=== PATIENT | female | born 1930 | race American Indian/Alaskan Native ===

== ENCOUNTER → 2016-10-05 | Day surgery (SDC) | payer MEDICARE, BC ==
[~2016-10-05] VITALS: Ht 167.6 cm; Wt 75.3 kg
[~2016-10-05] MED LIST: ACETAMINOPHEN 325 MG TAB PO PRN; ADV100INH INH; ALBU83IN INH; AMLO25TA PO; AcetaZOLAMIDE 500 MG ER CAP PO ONE; BETAMETHASONE SOLUSPAN 6MG/ML INJ 5ML (J0702) As Ordered ONE; BRIM1OPD OU; BSS with VANC/TOB/EPI for EYE CASES IR ONE; D5W/0.2% SODIUM CHLORIDE 250 ML IV ONE; FURO40TA2 PO; HEALON DUET (HEALON 10MG/ML 0.55ML & HEALON ENDOCOAT 30MG/ML 0.85ML) As Ordered ONE; KETOROLAC 0.5% OPHTH SOLN OS ONE; LEVO25TA5 PO; LIDOCAINE 2% W/EPIN INJ 20ML **PRES FREE As Ordered ONE; LIDOCAINE 4% INJ 5 ML AMP OU ONE; LR 1,000 ML IV SCH; MIDAZOLAM INJ 2 MG/2 ML VIAL (J2250) As Ordered ONE; MOXIFLOXACIN IN BSS 0.25MG/0.25ML INTRACAMERAL INJ (OR EYE ONLY)(J2280) As Ordered ONE; OFLOXACIN 0.3 % (OCUFLOX) OPTH SOL 5ML OS ONE; ONDANSETRON 4MG/2ML VIAL (J2405) IV PRN; POVIDONE-IODINE 5% OPHTH PREP SOL 30ML As Ordered ONE; PRED10PA PO; PREDOPD OU; PROPARACAINE 0.5% OPHTH SOL 15ML OS PRN; PROT20TA11 PO; SYST1SOL OU; TOBRADEX OPHTH OINT 3.5 GM As Ordered ONE; TOBRAMYCIN INJ 80 MG/2 ML VIAL (J3260) As Ordered ONE; TRIMETHOBENZAMIDE 300 MG CAP PO PRN; XALA0.002 OU; fentaNYL 100 MCG/2 ML INJECTION (J3010) As Ordered ONE; mitoMYcin (FOR OPHTHALMIC USE) 0.3MG/1ML SYRINGE IN NaCl (J7999) As Ordered ONE
[2016-10-05 10:50] VITALS: BP 178/87
--- NOTE | 2016-10-05 16:47 | RO ---
DATE OF PROCEDURE: 10/05/2016 PREOPERATIVE DIAGNOSIS: Glaucoma left eye. POSTOPERATIVE DIAGNOSIS: Glaucoma left eye. PROCEDURE: Placement of the Ex-PRESS shunt, version P-50, serial number [id number] and endocyclophotocoagulation left eye. SURGEON: Dr. Jenn Mares WARE SERVER: None. ANESTHESIA: COMPLICATIONS: None. DESCRIPTION OF PROCEDURE: The patient was brought to the operating room, laid in supine position. The left eye was prepped and draped in a sterile fashion for ophthalmic surgery following which a lid speculum was placed. A 7-0 Vicryl suture was then placed superiorly along the limbus, and the eye was rotated inferiorly. A fornix-based conjunctival flap was then created, which was dissected all the way up to the blue line. Hemostasis was obtained as necessary. Mitomycin C 0.3 mg per mL was then placed on the scleral bed followed by copious irrigation after 2-1/2 minutes with balanced salt solution. Limbal-based scleral flap was then created with the help of the straight and curved blade, and the anterior chamber was entered underneath the flap at the blue line with a 27-gauge needle, which was drawn in through the same tract the Ex-PRESS shunt was placed. The shunt was then draped over the scleral flap and conjunctiva closed using 8-0 Vicryl sutures. A sideport incision was then made and EndoCoat was placed in the anterior chamber and Healon was placed in the ciliary sulcus. The ciliary processes were visualized on the video screen with the help of the EndoProbe and endocyclophotocoagulation was done at 0.25 to 0.3 milliwatts, 280 degrees, with good response noted by the shrinkage of the ciliary processes for 280 degrees. Excess viscoelastic was then aspirated, the wound was hydrated. Intracameral moxifloxacin was given and lid speculum was removed. The patient was returned to the recovery room in stable condition.
== END | disposition home or self-care (01) ==
LOC: M SDC 08:38
PROVIDERS: ATTEND Ophthalmology
DX: H40.9 Unspecified glaucoma (principal); I10 Essential (primary) hypertension; J45.909 Unspecified asthma, uncomplicated; K21.9 Gastro-esophageal reflux disease without esophagitis; E03.9 Hypothyroidism, unspecified; Z88.6 Allergy status to analgesic agent; Z79.899 Other long term (current) drug therapy; Z79.82 Long term (current) use of aspirin
CPT/HCPCS: 66183; 66711; C1783; J2250; J2280; J3010; J7999

== ENCOUNTER 2017-02-23 10:47 | Day surgery (SDC) | payer MEDICARE, BC ==
[~2017-02-23] VITALS: Ht 167.6 cm; Wt 77.1 kg
[~2017-02-23 10:47] MED LIST changes: -ACETAMINOPHEN 325 MG TAB PO PRN; +ALBU17IN INH; +ASPI1TAB PO; -AcetaZOLAMIDE 500 MG ER CAP PO ONE; -BETAMETHASONE SOLUSPAN 6MG/ML INJ 5ML (J0702) As Ordered ONE; -BSS with VANC/TOB/EPI for EYE CASES IR ONE; -D5W/0.2% SODIUM CHLORIDE 250 ML IV ONE; +DULE200A IN; -HEALON DUET (HEALON 10MG/ML 0.55ML & HEALON ENDOCOAT 30MG/ML 0.85ML) As Ordered ONE; +KETO5OPD OD; -KETOROLAC 0.5% OPHTH SOLN OS ONE; +LIDOCAINE 3.5 % 1ML OPHTH TOPICAL GEL OU ONE; -LIDOCAINE 4% INJ 5 ML AMP OU ONE; -LR 1,000 ML IV SCH; -MIDAZOLAM INJ 2 MG/2 ML VIAL (J2250) As Ordered ONE; -MOXIFLOXACIN IN BSS 0.25MG/0.25ML INTRACAMERAL INJ (OR EYE ONLY)(J2280) As Ordered ONE; -OFLOXACIN 0.3 % (OCUFLOX) OPTH SOL 5ML OS ONE; +OFLOXACIN 0.3 % (OCUFLOX) OPTH SOL 5ML XX ONE; -ONDANSETRON 4MG/2ML VIAL (J2405) IV PRN; -POVIDONE-IODINE 5% OPHTH PREP SOL 30ML As Ordered ONE; +PREDOPD OS; -PROPARACAINE 0.5% OPHTH SOL 15ML OS PRN; +SIMB1SUS OU; -TOBRAMYCIN INJ 80 MG/2 ML VIAL (J3260) As Ordered ONE; -TRIMETHOBENZAMIDE 300 MG CAP PO PRN; -XALA0.002 OU; +XALA0.007 OU; -fentaNYL 100 MCG/2 ML INJECTION (J3010) As Ordered ONE; -mitoMYcin (FOR OPHTHALMIC USE) 0.3MG/1ML SYRINGE IN NaCl (J7999) As Ordered ONE
[2017-02-23] MEDS ORDERED: LR 500 ML IV ONE (11:00)
[2017-02-23] MEDS ORDERED: MIDAZOLAM INJ 2 MG/2 ML VIAL (J2250) As Ordered ONE (11:58)
[2017-02-23] MEDS ORDERED: fentaNYL 100 MCG/2 ML INJECTION (J3010) As Ordered ONE (11:58)
[2017-02-23] MEDS ORDERED: POVIDONE-IODINE 5% OPHTH PREP SOL 30ML As Ordered ONE (12:09)
--- NOTE | 2017-02-23 13:36 | RO ---
DATE OF SURGERY: 02/23/2017 PREOPERATIVE DIAGNOSIS: Uncontrolled glaucoma, left eye. POSTOPERATIVE DIAGNOSIS: Uncontrolled glaucoma, left eye. PROCEDURE: Placement of the Ahmed valve in the left eye. SURGEON: Jenn Mares MD FOUNDRY MANAGER: None. COMPLICATIONS: None. ANESTHESIA: Local intravenous (IV) standby. DESCRIPTION OF PROCEDURE: Procedure in detail: The patient was brought to the operating room and laid in supine position. The eye was prepped and draped in a sterile fashion for ophthalmic surgery, and the lid speculum was placed. A 7-0 Vicryl suture was then used to rotate the eye downwards and nasally. The patient's eye was first examined under the microscope. There were extensive vascularization of the peripheral cornea, along with 4+ chemosis and scarring of the conjunctiva. A previously-filled expression was also noted. After extensive lysis of the adhesions and careful subconjunctival dissection, Ahmed valve was placed about 9 mm behind the limbus and sutured in place using 10-0 nylon sutures. The valve tube was then cut to size. Prior to this, the valve was primed and was noted to be in excellent condition. A scleral tunnel was created about 4-5 mm behind the sclera very superficial, and the tube was tunneled through this tract into the eye. It was very difficult to see the exact location of the tube because of the corneal vascularization. The tube was also secured with a 10-0 nylon suture. The conjunctiva was then closed with lots of difficulty, including 10-0 nylon sutures and 8-0 Vicryl sutures. No leaks were noted. The lid speculum was removed. TobraDex ointment was applied. The eye was patched. The patient returned to the recovery room in stable condition.
[2017-02-23 14:00] VITALS: BP 189/81
[2017-04-11] MEDS ORDERED: ACET125T2 PO (13:08)
[2017-04-11] MEDS ORDERED: LOTE0.5S OU (13:08)
[2017-04-11] MEDS ORDERED: VITAD1000T PO (13:20)
== END 2017-02-23 14:15 | disposition home or self-care (01) ==
LOC: M SDC 10:47
PROVIDERS: ATTEND Ophthalmology
DX: H40.9 Unspecified glaucoma (principal); I10 Essential (primary) hypertension; E03.9 Hypothyroidism, unspecified; K59.00 Constipation, unspecified; K21.9 Gastro-esophageal reflux disease without esophagitis; M12.9 Arthropathy, unspecified; M54.2 Cervicalgia; R06.2 Wheezing; J44.9 Chronic obstructive pulmonary disease, unspecified; Z88.5 Allergy status to narcotic agent; Z79.899 Other long term (current) drug therapy; Z86.73 Personal history of transient ischemic attack (TIA), and cerebral infarction without residual deficits; Z87.891 Personal history of nicotine dependence; Z96.1 Presence of intraocular lens; Z90.710 Acquired absence of both cervix and uterus; Z96.652 Presence of left artificial knee joint
CPT/HCPCS: 66183; J2250; J3010

== ENCOUNTER 2017-04-19 05:42 | Day surgery (SDC) | payer MEDICARE, BC ==
[~2017-04-19] VITALS: Ht 167.6 cm; Wt 73.9 kg
[~2017-04-19 05:42] MED LIST changes: +ACET125T2 PO; -LIDOCAINE 2% W/EPIN INJ 20ML **PRES FREE As Ordered ONE; -LIDOCAINE 3.5 % 1ML OPHTH TOPICAL GEL OU ONE; +LOTE0.5S OU; -OFLOXACIN 0.3 % (OCUFLOX) OPTH SOL 5ML XX ONE; -TOBRADEX OPHTH OINT 3.5 GM As Ordered ONE; +VITAD1000T PO
[2017-04-19] MEDS ORDERED: LR 1,000 ML IV ONE (06:00)
[2017-04-19] MEDS ORDERED: BETAMETHASONE SOLUSPAN 6MG/ML INJ 5ML (J0702) As Ordered ONE (06:33)
[2017-04-19] MEDS ORDERED: POVIDONE-IODINE 5% OPHTH PREP SOL 30ML As Ordered ONE (06:33)
[2017-04-19] MEDS ORDERED: TOBRAMYCIN INJ 80 MG/2 ML VIAL (J3260) As Ordered ONE (06:33)
[2017-04-19] MEDS ORDERED: TOBRADEX OPHTH OINT 3.5 GM As Ordered ONE (06:34)
[2017-04-19] MEDS ORDERED: HEALON DUET (HEALON 10MG/ML 0.55ML & HEALON ENDOCOAT 30MG/ML 0.85ML) As Ordered ONE (06:34)
[2017-04-19] MEDS ORDERED: OFLOXACIN 0.3 % (OCUFLOX) OPTH SOL 5ML OS ONE (07:00)
[2017-04-19] MEDS ORDERED: LIDOCAINE 3.5 % 1ML OPHTH TOPICAL GEL OU ONE (07:00)
[2017-04-19] MEDS ORDERED: PROPOFOL 200 MG/20 ML VIAL As Ordered ONE (07:21)
[2017-04-19] MEDS ORDERED: fentaNYL 100 MCG/2 ML INJECTION (J3010) As Ordered ONE (07:21)
[2017-04-19] MEDS ORDERED: ROCURONIUM BROMIDE 50 MG/5 ML VIAL/SYRINGE As Ordered ONE (07:21)
[2017-04-19] MEDS ORDERED: MIDAZOLAM INJ 2 MG/2 ML VIAL (J2250) As Ordered ONE (07:21)
[2017-04-19] MEDS ORDERED: LIDOCAINE 2% INJ 100 MG/5 ML SYRINGE As Ordered ONE (07:21)
[2017-04-19] MEDS ORDERED: ONDANSETRON 4MG/2ML VIAL (J2405) As Ordered ONE (07:52)
[2017-04-19] MEDS ORDERED: LIDOCAINE PRES-FREE 2% 10ML AMP As Ordered ONE (07:52)
[2017-04-19] MEDS ORDERED: AcetaZOLAMIDE 500MG INJECTION (J1120) IV ONE (09:00)
[2017-04-19] MEDS ORDERED: MANNITOL 20% BAG 250 ML IV ONE (09:00)
[2017-04-19 10:51] VITALS: BP 178/74
--- NOTE | 2017-04-19 11:22 | RO ---
DATE OF PROCEDURE: 04/19/2017 PREPROCEDURE DIAGNOSIS: Corneal vascularization and scarring, left eye. POSTPROCEDURE DIAGNOSIS: Corneal vascularization and scarring, left eye. PROCEDURE: Penetrating keratoplasty left eye. SURGEON: Dr. Jenn Mares. COIN BOX INSPECTOR: None. ANESTHESIA: Retrobulbar anesthesia using 2% Xylocaine. COMPLICATIONS: None. DESCRIPTION OF PROCEDURE: The patient was brought to the operating room and laid in supine position. The eye was prepped and draped in a sterile fashion for ophthalmic surgery and 4 mL of 2% lidocaine was given as a retrobulbar anesthetic following which the eye was massaged for 15 minutes and a lid speculum was placed. The corneal tissue had been inspected prior and with a 9 mm punch it was placed on the back table. Using an 8.5 mm trephine, the host cornea was fractionated from the host with the help of the scissors to the right and to the left. Anterior chamber was maintained using EndoCoat. Once the host cornea was removed, the corneal graft was then sutured in place using 12 interrupted nylon sutures. All the knots were buried. This was followed by an anti-torque #10-0 nylon running suture in between the interrupted sutures. The laxity was removed and the knot was tied and buried. Throughout the case, anterior chamber was maintained using balanced salt solutions (BSS). At the end of the case, subtenon injection of Kenalog and tobramycin were given. The eye was patched, Nicole Shield applied and the patient was returned to the delivery room in stable condition.
[2017-04-19] MEDS ORDERED: PILOCARPINE 1% OPHTH SOLN 15 ML OS SCH (13:15)
== END 2017-04-19 11:08 | disposition home or self-care (01) ==
LOC: M SDC 05:42
PROVIDERS: ATTEND Ophthalmology
DX: H16.042 Marginal corneal ulcer, left eye (principal); H17.89 Other corneal scars and opacities; J44.9 Chronic obstructive pulmonary disease, unspecified; J45.909 Unspecified asthma, uncomplicated; I10 Essential (primary) hypertension; E03.9 Hypothyroidism, unspecified; K59.00 Constipation, unspecified; K21.9 Gastro-esophageal reflux disease without esophagitis; M12.9 Arthropathy, unspecified; M54.9 Dorsalgia, unspecified; N39.3 Stress incontinence (female) (male); Z88.5 Allergy status to narcotic agent; Z79.899 Other long term (current) drug therapy; Z79.82 Long term (current) use of aspirin; Z90.710 Acquired absence of both cervix and uterus; Z96.1 Presence of intraocular lens; Z96.653 Presence of artificial knee joint, bilateral
CPT/HCPCS: 65730; 87070; 87075; 87102; 88300; J0702; J1120; J2250; J2405; J3010; J3260

== ENCOUNTER 2017-08-09 08:27 | Day surgery (SDC) | payer MEDICARE, BC ==
[2017-08-09] MEDS: HEALON DUET (HEALON 10MG/ML 0.55ML & HEALON ENDOCOAT 30MG/ML 0.85ML) As Ordered (06:56)
[~2017-08-09 08:27] MED LIST changes: -ACET125T2 PO; -ADV100INH INH; -ALBU17IN INH; -ALBU83IN INH; -AMLO25TA PO; -ASPI1TAB PO; -BRIM1OPD OU; -DULE200A IN; -FURO40TA2 PO; -KETO5OPD OD; -LEVO25TA5 PO; -LOTE0.5S OU; +MIDAZOLAM INJ 2 MG/2 ML VIAL (J2250) As Ordered; -PRED10PA PO; -PREDOPD OS; -PREDOPD OU; -PROT20TA11 PO; -SIMB1SUS OU; -SYST1SOL OU; -VITAD1000T PO; -XALA0.007 OU; +fentaNYL 100 MCG/2 ML INJECTION (J3010) As Ordered
[2017-08-09] MEDS ORDERED: BETAMETHASONE SOLUSPAN 6MG/ML INJ 5ML (J0702) As Ordered (08:59)
[2017-08-09] MEDS ORDERED: TOBRAMYCIN INJ 80 MG/2 ML VIAL (J3260) As Ordered (08:59)
[2017-08-09] MEDS: CEFUROXIME 1MG/0.1ML INTRACAMERAL INJ As Ordered (09:44)
[2017-08-09] MEDS: LIDOCAINE 1% SDV 5 ML VIAL As Ordered (09:44)
[2017-08-09] MEDS: OFLOXACIN 0.3 % (OCUFLOX) OPTH SOL 5ML OS (09:59)
[2017-08-09] MEDS: LIDOCAINE 3.5 % 1ML OPHTH TOPICAL GEL OU (09:59)
[2017-08-09] MEDS: LIDOCAINE 2% W/EPIN INJ 20ML **PRES FREE As Ordered (10:49)
[2017-08-09] MEDS: POVIDONE-IODINE 5% OPHTH PREP SOL 30ML As Ordered (10:49)
[2017-08-09] MEDS: TOBRADEX OPHTH OINT 3.5 GM As Ordered (10:53)
== END 2017-08-09 12:05 | disposition home or self-care (01) ==
LOC: M SDC 08:27
DX: T85.398A Other mechanical complication of other ocular prosthetic devices, implants and grafts, initial encounter (principal); I10 Essential (primary) hypertension; E03.9 Hypothyroidism, unspecified; K21.9 Gastro-esophageal reflux disease without esophagitis; M12.9 Arthropathy, unspecified; Z88.5 Allergy status to narcotic agent; Z79.899 Other long term (current) drug therapy; Z79.82 Long term (current) use of aspirin; Z78.0 Asymptomatic menopausal state; Z86.14 Personal history of Methicillin resistant Staphylococcus aureus infection; Z96.653 Presence of artificial knee joint, bilateral; Z98.51 Tubal ligation status; Z96.1 Presence of intraocular lens; X58.XXXA Exposure to other specified factors, initial encounter; Y92.89 Other specified places as the place of occurrence of the external cause; Y93.89 Activity, other specified; Y99.8 Other external cause status
CPT/HCPCS: 66180